=== PATIENT | female | born 1970 | race Caucasian/White ===

== ENCOUNTER 2022-09-10 14:30 | Outpatient (RCR) | payer OTHER, SELFPAY | END 2022-09-10 15:15 | disposition home or self-care (01) | LOC: HO.OT 14:30 | PROVIDERS: PCP Internal Medicine Infectious Disease; Visit Provider Orthopaedic Surgery Hand Surgery | DX: M77.8 Other enthesopathies, not elsewhere classified (principal) | CPT/HCPCS: 97033; 97110; 97140; 97165; 97530 ==